=== PATIENT | female | born 1965 | race Two or more races ===

== ENCOUNTER → 2017-01-04 | Outpatient (CLI) | payer OTHER ==
--- NOTE | 2017-01-04 17:05 | KCIC ---
Bilateral digital screening mammograms: Reason for examination: Routine screening. Comparison is made to previous studies dated 08/03/2015 and 07/25/2015. The skin and nipples show no abnormalities. No abnormal axillary lymph nodes are seen. The breast parenchyma is heterogeneously dense. (Breast density: Category C.) There appears to be a new nodular density seen just medial to the nipple line in the right cc view centrally. This may represent a cyst but recommend further evaluation with ultrasound. In the left breast probably at the 11:00 C position centrally, there is a small nodular density present measuring approximately 4.5 mm in size. Further evaluation with ultrasound is recommended. There are no Suspicious calcifications or architectural distortion. Impression: Small nodular densities seen bilaterally. These may represent cysts but recommend further evaluation with ultrasound. Your patient's mammogram demonstrates that she has dense breast tissue (breast density category C or D), which could hide abnormalities, and if she has other risk factors for breast cancer that have been identified, she might benefit from supplemental screening tests that may be suggested by you as her ordering physician. Dense breast tissue, in and of itself, is a relatively common condition. Therefore, this information is not provided to cause undue concern, but rather to raise your awareness and to promote discussion with your patient regarding the presence of other risk factors, in addition to dense breast tissue. Your patient's mammography results will be sent to her. BI-RAD Category 0: Incomplete. Ultrasound follow-up is recommended. "Our facility is accredited by the [employer] Mammography [employer]." This patient's information has been entered into a reminder system for the patient to be notified with the results of her examination and a target date for the next mammogram. Electronically signed by: Donna Pena MD (01/04/2017 5:03 PM) [facility]
== END | disposition home or self-care (01) ==
LOC: KCIC MAMMO 11:05
PROVIDERS: ATTEND Obstetrics & Gynecology
DX: Z12.31 Encounter for screening mammogram for malignant neoplasm of breast (principal)
CPT/HCPCS: G0202; 77067

== ENCOUNTER → 2017-01-11 | Outpatient (CLI) | payer OTHER ==
--- NOTE | 2017-01-11 15:09 | KCIC ---
Bilateral breast ultrasound: Reason for examination: Nodular densities on mammographic screening. Comparison is made to mammographic exam dated 01/04/2017. Ultrasound examination was performed bilaterally in the areas of mammographic concern. In the right breast, there is some ductal ectasia in the subareolar position and some minimal fibrocystic changes 2 cm from the nipple at the 4:00 position. No other cystic or solid lesions are seen. No abnormal lymph nodes are seen in the axilla. In the left breast, there is some patchy fibroglandular tissue and some very minimal fibrocystic changes. No suspicious nodules are seen. No abnormal appearing lymph nodes are seen in the axilla. IMPRESSION: Ductal ectasia and some minimal fibrocystic changes in the 4:00 position of the right breast 2 cm from the nipple. Some minimal fibrocystic changes in the left breast but no suspicious abnormality seen. Recommend bilateral 6 month follow-up with mammograms and ultrasound. BI-RADS Category 3: Probably Benign. "Our facility is accredited by the [employer] Mammography [employer]." This patient's information has been entered into a reminder system for the patient to be notified with the results of her examination and a target date for the next mammogram. Electronically signed by: Donna Pena MD (01/11/2017 3:05 PM) [id number]
== END | disposition home or self-care (01) ==
LOC: KCIC US 13:22
PROVIDERS: ATTEND Obstetrics & Gynecology
DX: R92.8 Other abnormal and inconclusive findings on diagnostic imaging of breast (principal)
CPT/HCPCS: 76641

== ENCOUNTER → 2018-08-22 | Outpatient (CLI) | payer OTHER ==
--- NOTE | 2018-08-22 12:58 | KCIC ---
Bilateral diagnostic digital mammograms: Reason for examination: Follow-up nodules.. Comparison is made to previous studies dated back to 07/28/2015. Interpretation was made with the benefit of CAD. The skin and nipples show no abnormalities. No abnormal axillary lymph nodes are seen. The breast parenchyma is heterogeneously dense. (Breast density: Category C.) There appears to be improvement in the nodularity seen previously. There are no new dominant masses, suspicious calcifications or architectural distortion. Impression: Improvement in the nodularity seen previously. Ultrasound to follow. Your patient's mammogram demonstrates that she has dense breast tissue (breast density category C or D), which could hide abnormalities, and if she has other risk factors for breast cancer that have been identified, she might benefit from supplemental screening tests that may be suggested by you as her ordering physician. Dense breast tissue, in and of itself, is a relatively common condition. Therefore, this information is not provided to cause undue concern, but rather to raise your awareness and to promote discussion with your patient regarding the presence of other risk factors, in addition to dense breast tissue. Your patient's mammography results will be sent to her. BI-RAD Category 0: Incomplete. Needs additional imaging evaluation. Bilateral breast ultrasound: Comparison is made to previous study dated 01/11/2017. Ultrasound examination was performed bilaterally of the breasts and the axilla. In the right breast, there is some ductal ectasia. No other cystic or solid lesions are seen. No abnormal appearing lymph nodes are seen in the axilla. In the left breast, no cystic or solid nodules are seen. No abnormal appearing lymph nodes are seen in the axilla. IMPRESSION: No suspicious abnormalities evident in either breast. Recommend routine mammographic follow-up. BI-RADS Category 2: Benign. "Our facility is accredited by the [employer] Mammography Program." This patient's information has been entered into a reminder system for the patient to be notified with the results of her examination and a target date for the next mammogram. Electronically signed by: Donna Pena MD (08/22/2018 12:55 PM) [id number]
== END | disposition home or self-care (01) ==
LOC: KCIC MAMMO 08:57
PROVIDERS: ATTEND Obstetrics & Gynecology
DX: N63.10 Unspecified lump in the right breast, unspecified quadrant (principal); N63.20 Unspecified lump in the left breast, unspecified quadrant
CPT/HCPCS: 76641; 77066

== ENCOUNTER → 2020-03-25 | Outpatient (CLI) | payer OTHER ==
--- NOTE | 2020-03-25 19:23 | KCIC ---
Bilateral digital screening mammograms: Reason for examination: Routine screening. Comparison is made to previous studies dated back to 07/25/2015. Interpretation was made with the benefit of CAD. The skin and nipples show no abnormalities. No abnormal axillary lymph nodes are seen. The breast parenchyma is heterogeneously dense. (Breast density: Category C.) There appears to be a new nodular parenchymal density posterior medially in the left breast on cc view probably at the 7:00 position. Further evaluation with coned compression views and ultrasound is recommended. There are no other dominant masses, suspicious calcifications or architectural distortion. Impression: Nodular density in the left breast posterior medially on cc view probably at the 7:00 position. Recommend further evaluation with coned compression views and ultrasound. Your patient's mammogram demonstrates that she has dense breast tissue (breast density category C or D), which could hide abnormalities, and if she has other risk factors for breast cancer that have been identified, she might benefit from supplemental screening tests that may be suggested by you as her ordering physician. Dense breast tissue, in and of itself, is a relatively common condition. Therefore, this information is not provided to cause undue concern, but rather to raise your awareness and to promote discussion with your patient regarding the presence of other risk factors, in addition to dense breast tissue. Your patient's mammography results will be sent to her. BI-RAD Category 0: Incomplete. Needs additional imaging evaluation. "Our facility is accredited by the [employer] Mammography Program." This patient's information has been entered into a reminder system for the patient to be notified with the results of her examination and a target date for the next mammogram. Electronically signed by: Donna Pena MD (03/25/2020 7:19 PM) [email or web address]
== END ==
LOC: KCIC MAMMO 14:15
PROVIDERS: ATTEND Obstetrics & Gynecology
DX: Z12.31 Encounter for screening mammogram for malignant neoplasm of breast (principal); N64.89 Other specified disorders of breast
CPT/HCPCS: 77067

== ENCOUNTER → 2020-04-13 | Outpatient (CLI) | payer OTHER ==
--- NOTE | 2020-04-13 14:02 | KCIC ---
Left breast diagnostic digital mammograms: Reason for examination: Nodularity on screening mammogram. Comparison is made to previous examination dated 03/25/2020. Coned compression views were obtained in CC and oblique projections. There is still some subtle nodularity in the 7:00 position 6 cm from the nipple. Further evaluation with ultrasound will follow. IMPRESSION: Subtle nodularity persists at the 7:00 position 6 cm from the nipple. Ultrasound to follow. BI-RADS Category 0: Incomplete. Needs additional imaging evaluation. Left breast ultrasound: Ultrasound examination of the left breast and axilla was performed. At the 7:00 position 6 cm from the nipple, there is a elongated hypoechoic fibrocystic type lesion which appears to measure approximately 5 mm in greatest dimension. There is some ductal ectasia present. No other cystic or solid nodules are seen. No abnormal appearing lymph nodes are seen in the axilla. IMPRESSION: Small 5 mm fibrocystic lesion at the 7:00 position. No suspicious abnormality seen. Recommend 6 month follow-up with left breast mammograms and ultrasound. BI-RADS Category 3: Probably Benign. "Our facility is accredited by the [employer] Mammography Program." This patient's information has been entered into a reminder system for the patient to be notified with the results of her examination and a target date for the next mammogram. Electronically signed by: Donna Pena MD (04/13/2020 1:59 PM) [email or web address]
== END ==
LOC: KCIC MAMMO 13:06
PROVIDERS: ATTEND Obstetrics & Gynecology
DX: N60.42 Mammary duct ectasia of left breast (principal)
CPT/HCPCS: 76641; 77065

== ENCOUNTER → 2020-09-08 | Outpatient (CLI) | payer OTHER ==
--- NOTE | 2020-09-08 10:17 | KCIC ---
Left breast diagnostic digital mammograms: Reason for examination: Follow-up parenchymal density. Comparison is made to previous studies dated 03/25/2020 and 04/13/2020. Images of the left breast were obtained in CC, rolled cc, oblique and coned compression lateral proje ctions. With these additional views, no abnormality is seen at the skin and nipple. No abnormal appearing lym ph nodes are seen in the axilla. Breast parenchyma shows heterogeneous density (breast density catego ry C.) There continues to be patchy asymmetric tissue posterior medially which appears to be in the l ower inner quadrant and appears to be stable. Further evaluation with ultrasound will follow. IMPRESSION: Asymmetry posterior medially in the left breast. Ultrasound to follow. BI-RADS Category 0: Incomplete. Needs additional imaging evaluation. Left breast ultrasound: Comparison is made to previous study dated 04/13/2020. Ultrasound examination was performed with attention to the area of mammographic concern in the lower inner quadrant and at the axilla. There continues to be some minimal fibrocystic change at the 6:00 position. The small fibrocystic les ion at the 7:00 position has resolved. There is some mild ductal ectasia in the subareolar position. No abnormal appearing lymph nodes are seen in the axilla. IMPRESSION: Minimal fibrocystic changes but no suspicious abnormality seen. Recommend routine bilateral mammogram s in 6 months. BI-RADS Category 2: Benign. "Our facility is accredited by the [employer] Mammography Program." This patient's information has been entered into a reminder system for the patient to be notified wit h the results of her examination and a target date for the next mammogram. Electronically signed by: Donna Pena MD (09/08/2020 10:15 AM) [facility]
== END ==
LOC: KCIC MAMMO 07:57
PROVIDERS: ATTEND Obstetrics & Gynecology
DX: N64.89 Other specified disorders of breast (principal); R92.8 Other abnormal and inconclusive findings on diagnostic imaging of breast
CPT/HCPCS: 76641; 77065

== ENCOUNTER → 2021-03-10 | Outpatient (CLI) | payer OTHER ==
--- NOTE | 2021-03-10 15:54 | KCIC ---
Bilateral digital screening mammograms: Reason for examination: Routine screening. Comparison is made to previous mammograms from 09/08/2020, 04/13/2020, 03/25/2020, and 08/22/2018. Interpretation was made with the benefit of CAD. Findings: Breast density: Category C. The breasts are heterogeneously dense, which may obscure small masses.. There are no dominant masses, suspicious calcifications or architectural distortions. Impression: No evidence of malignancy. Assessment: BI-RADS Category 1: Negative. Recommendation: Routine screening mammograms. In the future, 3-D mammography would be helpful because the breasts are dense. This patient's information has been entered into a reminder system for the patient to be notified wit h the results of her examination and a target date for the next mammogram. Electronically signed by: Kimberly Johnson MD (03/10/2021 3:52 PM) [email or web address]
== END ==
LOC: KCIC MAMMO 09:55
PROVIDERS: ATTEND Obstetrics & Gynecology
DX: Z12.31 Encounter for screening mammogram for malignant neoplasm of breast (principal)
CPT/HCPCS: 77067